=== PATIENT | male | born 1945 | race Two or more races ===

== ENCOUNTER 2023-02-02 12:33 | Outpatient (AMB) | payer MEDICARE, MEDICAID, SELFPAY ==
--- NOTE | 2023-02-02 12:38 | HO.NEPHOV ---
HPI HPI Comments History of Present Illness Details 77y/o male comes fore valuation of cognitive difficulties. He is accompanied by his son and daughter who help with history. The family started noticing problems with his memory about 3- 4 years ago.He was driving and got lost and had to call his son. He frequently misplacing things around the house,losing things in the house like car keys, he has trouble with names , could not recognize his grandson. He has issues with remembering medications. His speech- has trouble with articulating and understanding. He has trouble reading and writing. No h/o major head injury . he played baseball when younger and had concussion once. He has mild depression and not motivated.he has trouble following directions. He stopped driving. According to his daughter he is paranoid thought and mild hallucinations. His gait was slow. His cognition worsened when he was socially isolated during COVID He has loud snoring and has disruptive , has excessive daytime sleepiness. His mother had dementia. [facility] Medical History (Updated 02/02/23 @ 13:25 by Mere Sanchez MD) Gait abnormality Hypersomnia Snoring Expressive aphasia Dementia Arthritis Glaucoma Hypothyroid Surgical History H/O hernia repair Family History Father Cancer AD (Alzheimer's disease) Mother AD (Alzheimer's disease) Vital Signs 02/02/23 12:42 Weight 149 lb 2 oz BP 132/80 Blood Pressure Location Lt brachial Position Sitting Pulse 98 Pulse Source Pulse Oximeter Pulse Oximetry (%) 98 Oxygen Delivery Method Room Air Intake Medication List - Last Reconciled 02/02/23 by Mere Sanchez MD levothyroxine 50 mcg PO DAILY Physical Exam Vital Signs: Last Vital Signs Pulse 98 02/02/23 12:42 BP 132/80 02/02/23 12:42 Pulse Ox 98 02/02/23 12:42 Oxygen Delivery Method Room Air 02/02/23 12:42 Const General: cooperative, healthy appearing, comfortable and confusion Nutritional Appearance: average body habitus Orientation/consciousness: confusion Eyes Pupils: Equal, round and reactive pupils present Neuro Other: slow stooped gait expressive aphasia General: confusion Cranial nerves: Yes Equal, round and reactive pupils present, Yes Bilaterally intact EOM present, Yes Nystagmus not present, Yes Normal facial strength present, Yes Midline tongue present and Yes Symmetric palate elevation present Cognition (Neuro): abnormal cognition Speech: Expressive aphasia present Motor exam (neuro): 5/5 motor strength present throughout and Normal motor muscle tone present throughout Deep tendon reflexes (DTR's): Right triceps reflex intensity grade: 1+, Left triceps reflex intensity grade: 1+, Rt Biceps (C5, C6): 1+, Left biceps reflex intensity grade: 1+, Right brachioradialis reflex intensity grade: 1+, Left brachioradialis reflex intensity grade: 1+, Right patellar reflex intensity grade: 1+ and Left patellar reflex intensity grade: 1+ Coordination: [id number]-[id number]-[id number] test normal Orientation What is the (year) (season) (date) (day) (month)?: season and day Where are we (state) (county) (town or city) (hospital) (floor)?: state Registration Name of 3 unrelated objects clearly and slowly, then ask patient to repeat all 3 of them. (1st repeat determines score. Make sure they can repeat all three): object 1 Language Show patient a wristwatch & ask what it is. 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 Code(s): F03.90 - Unspecified dementia, unspecified severity, without behavioral disturbance, psychotic disturbance, mood disturbance, and anxiety (2) Expressive aphasia: Code(s): R47.01 - Aphasia (3) Snoring: Code(s): R06.83 - Snoring (4) Hypersomnia: Code(s): G47.10 - Hypersomnia, unspecified Plan Lab reports from PCP for review MRI brain I will refer him to Speech and PT sleep study to r/o sleep apnea I will trail him on memantine XR 7 mg qd Orders: Orders MR brain wo con w neuroquant Today F03.90 - Unspecified dementia, unspecified severity, without behavioral disturbance, psychotic disturbance, mood disturbance, and anxiety, R47.01 - Aphasia RT home sleep study Today G47.10 - Hypersomnia, unspecified, R06.83 - Snoring PT Evaluation and Treatment Today R26.9 - Unspecified abnormalities of gait and mobility Referrals Speech and Hearing Referral R47.01 - Aphasia Medications: New memantine 7 mg PO DAILY 14 ea 0RF Coding Level of Care Code New Pt Level 4 (24678) Diagnoses Dementia F03.90 Expressive aphasia R47.01 Snoring R06.83 Hypersomnia G47.10
[2023-02-02 12:42] VITALS: BP 132/80; PULSE 98; O2SAT 98
--- NOTE | 2023-02-07 09:22 | A.OFFVIS_ITS ---
Intake Vital Signs 02/02/23 12:42 Weight 149 lb 2 oz BP 132/80 Blood Pressure Location Lt brachial Position Sitting Pulse 98 Pulse Source Pulse Oximeter Pulse Oximetry (%) 98 Oxygen Delivery Method Room Air Intake Visit Reasons: ENP-Dementia - LVM Allergies No Known Allergies Allergy (Verified 02/02/23 12:38) Medication List - Last Reconciled 02/02/23 by Mere Sanchez MD levothyroxine 50 mcg PO DAILY HPI HPI Comments History of Present Illness Details 77y/o male comes fore valuation of cogni tive difficulties. He is accompanied by his son and daughter who help with history. The family started noticing problems with his memory about 3- 4 years ago.He was driving and got lost and had to call his son. He frequently misplacing things around the house,losing things in the house like car keys, he has trouble with names , could not recognize his grandson. He has issues with remembering medications. His speech- has trouble with articulating and understanding. He has trouble reading and writing. No h/o major head injury . he played baseball when younger and had concussion once. He has mild depression and not motivated.he has trouble following directions. He stopped driving. According to his daughter he is paranoid thought and mild hallucinations. His gait was slow. His cognition worsened when he was socially isolated during COVID He has loud snoring and has disruptive , has excessive daytime sleepiness. His mother had dementia. [facility] Medical History Gait abnormality Hypersomnia Snoring Expressive aphasia Dementia Arthritis Glaucoma Hypothyroid Surgical History H/O hernia repair Family History Father Cancer AD (Alzheimer's disease) Mother AD (Alzheimer's disease) Review of Systems Neuro Reports confusion Psych Reports confusion Physical Exam Vital Signs: Last Vital Signs Pulse 98 02/02/23 12:42 BP 132/80 02/02/23 12:42 Pulse Ox 98 02/02/23 12:42 Oxygen Delivery Method Room Air 02/02/23 12:42 Const Other: MMSE What is the (year) (season) (date) (day) (month)?: season and day Where are we (state) (county) (town or city) (hospital) (floor)?: state Registration Name of 3 unrelated objects clearly and slowly, then ask patient to repeat all 3 of them. (1st repeat determines score. Make sure they can repeat all three): object 1 Language Show patient a wristwatch & ask what it is. Repeat for pencil.: watch Ask the patient to 'take a piece of paper with their right hand' 'fold paper in half' 'place paper on floor': take paper in right hand Score Score: 6 General: cooperative, healthy appearing, comfortable and confusion Nutritional Appearance: average body habitus Orientation/consciousness: confusion Eyes Pupils: Equal, round and reactive pupils present Neuro Other: slow stooped gait expressive aphasia General: confusion Cranial nerves: Yes Equal, round and reactive pupils present, Yes Bilaterally intact EOM present, Yes Nystagmus not present, Yes Normal facial strength p resent, Yes Midline tongue present and Yes Symmetric palate elevation present Cognition (Neuro): abnormal cognition Speech: Expressive aphasia present Motor exam (neuro): 5/5 motor strength present throughout and Normal motor muscle tone present throughout Deep tendon reflexes (DTR's): Right triceps reflex intensity grade: 1+, Left triceps reflex intensity grade: 1+, Rt Biceps (C5, C6): 1+, Left biceps reflex intensity grade: 1+, Right brachioradialis reflex intensity grade: 1+, Left brachioradialis reflex intensity grade: 1+, Right patellar reflex intensity grade: 1+ and Left patellar reflex intensity grade: 1+ Coordination: [id number]-[id number] test normal Assessment & Plan Assessment & Plan (1) Dementia: Comment: 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-moderate to advanced Code(s): F03.90 - Unspecified dementia, unspecified severity, without behavioral disturbance, psychotic disturbance, mood disturbance, and anxiety (2) Expressive aphasia: Code(s): R47.01 - Aphasia (3) Snoring: Code(s): R06.83 - Snoring (4) Hypersomnia: Code(s): G47.10 - Hypersomnia, unspecified Plan Lab reports from PCP for review MRI brain I will refer him to Speech and PT sleep study to r/o sleep apnea I will trail him on memantine XR 7 mg qd Orders: Orders MR brain wo con w neuroquant 11/17/23 F03.90 - Unspecified dementia, unspecified severity, without behavioral disturbance, psychotic disturbance, mood disturbance, and anxiety, R47.01 - Aphasia RT home sleep study 02/02/23 G47.10 - Hypersomnia, unspecified, R06.83 - Snoring PT Evaluation and Treatment 02/02/23 R26.9 - Unspecified abnormalities of gait and mobility Referrals Speech and Hearing Referral R47.01 - Aphasia Medications: New memantine 7 mg PO DAILY 14 ea 0RF Coding Level of Care Code New Pt Level 4 (79153) Diagnoses Dementia F03.90 Expressive aphasia R47.01 Snoring R06.83 Hypersomnia G47.10
== END 2023-02-02 13:26 | disposition home or self-care (01) ==
PROVIDERS: PCP Physician Assistant; Visit Provider Psychiatry & Neurology Neurology
DX: F03.90 Unspecified dementia, unspecified severity, without behavioral disturbance, psychotic disturbance, mood disturbance, and anxiety (principal); R47.01 Aphasia; R06.83 Snoring; G47.10 Hypersomnia, unspecified
CPT/HCPCS: 99204

== ENCOUNTER → 2023-02-02 12:33 | Outpatient (BNVA) | payer MEDICARE, MEDICAID, SELFPAY | PROVIDERS: PCP Physician Assistant; Visit Provider Psychiatry & Neurology Neurology | DX: F03.90 Unspecified dementia, unspecified severity, without behavioral disturbance, psychotic disturbance, mood disturbance, and anxiety (principal); G47.10 Hypersomnia, unspecified; R47.01 Aphasia; R06.83 Snoring | CPT/HCPCS: 99202 ==

== ENCOUNTER 2024-10-15 14:56 | Outpatient (AMB) | payer MEDICARE, MEDICAID, SELFPAY ==
--- NOTE | 2024-10-15 15:11 | A.OFFVIS_ITS ---
Vital Signs 10/15/24 15:21 BP 118/80 Blood Pressure Location Rt brachial Position Sitting Pulse 101 H Pulse Source Pulse Oximeter Pulse Oximetry (%) 98 Oxygen Delivery Method Room Air Intake Visit Reasons: follow up Dementia/MRI Intake Note: Patient presents follow up for dementia/MRI results. Patient no longer responds to commands and can no longer preform tasks on his own. Accompanied by: Son Allergies No Known Allergies Allergy (Verified 02/02/23 12:38) HPI Comments Details: 77y/o male comes for follow up after 2 years for cognitive difficulties. His MRI showed white matter changes. He did not do a sleep study or did not start memantine.He did not do PT or speech therapy.He needs help with all his ADLS. His cognition has worsened.He very quiet now. He barely participates in any regular activities. His describes that he is like a child. He is also anxious around people he does no remember.He does not rememebr his grand son or his sons. history from 2 years ago-He is accompanied by his son and daughter who help with history. The family started noticing problems with his memory about 3- 4 years ago.He was driving and got lost and had to call his son. He frequently misplacing things around the house,losing things in the house like car keys, he has trouble with names , could not recognize his grandson. He has issues with remembering medications. His speech- has trouble with articulating and understanding. He has trouble reading and writing. No h/o major head injury . he played baseball when younger and had concussion once. He has mild depression and not motivated.he has trouble following directions. He stopped driving. According to his daughter he is paranoid thought and mild hallucinations. His gait was slow. His cognition worsened when he was socially isolated during COVID He has loud snoring and has disruptive , has excessive daytime sleepiness. His mother had dementia. [facility] Medical History Gait abnormality Hypersomnia Snoring Expressive aphasia Dementia Arthritis Glaucoma Hypothyroid Surgical History H/O hernia repair Family History Father Cancer AD (Alzheimer's disease) Mother AD (Alzheimer's disease) Review of Systems Neuro Reports confusion Psych Reports confusion Physical Exam Vital Signs: Last Vital Signs Pulse 101 H 10/15/24 15:21 BP 118/80 10/15/24 15:21 Pulse Ox 98 10/15/24 15:21 Oxygen Delivery Method Room Air 10/15/24 15:21 Const General: cooperative, healthy appearing, comfortable and confusion Nutritional Appearance: average body habitus Orientation/consciousness: confusion Neuro Other: slow stooped gait expressive aphasia General: confusion Cognition (Neuro): abnormal cognition Speech: Expressive aphasia present Coordination: [id number] test normal Assessment & Plan Assessment & Plan (1) Dementia: Comment: 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-advanced Code(s): F03.90 - Unspecified dementia, unspecified severity, without behavioral disturbance, psychotic disturbance, mood disturbance, and anxiety Category: Medical (2) Expressive aphasia: Code(s): R47.01 - Aphasia Category: Medical Plan MRI brain- reviewed Info on SS and [facility] Elder care was given to family for supportive care. Coding Level of Care Code Est Pt Level 3 (50810) Diagnoses Dementia F03.90 Expressive aphasia R47.01
[2024-10-15 15:21] VITALS: BP 118/80; PULSE 101; O2SAT 98
--- OUTSIDE RECORDS SUMMARY | 2024-10-15 15:41 | XMS_ITS | Clinical Summary ---
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 01/17/2022 Active levothyroxine (SYNTHROID, LEVOTHROID) 50 mcg tablet Take 1 tablet (50 mcg total) by mouth 1 (one) time each day. 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 Subclinical hypothyroidism 05/22/2016 Memory changes 05/15/2016 Vitamin D deficiency 05/15/2016 Back pain 03/27/2013 Sciatica of right side 03/27/2013 Encounters Date Type Department Care Team Description 08/29/2024 Telephone Adult Medicine [address] [phone] Jessica Blackburn MD Schedule AWV from Last 3 Months Immunizations Name Administration Dates Next Due Influenza trivalent, with pr eservative (Fluzone; Afluria) 6mo and older 03/27/2013 [employer] SARS-CoV-2 COVID -19, vector-nr, rS-Ad26, preservative free 06/30/2020 Pneumococcal conjugate 13 va lent (Prevnar 13, PCV13) 2mo and older 03/27/2013 TD, Adsorbed, Preservative Free 09/20/2010 Td Tetanus diptheria (Tdvax) 7yo and older 09/20 Tdap Tetanus diptheria acell ular pertussis (Boostrix; Adacel) 7yo and older 09/29/2011 Surgical History Surgery Date Site/Laterality Comments OTHER SURGICAL HISTORY PROCEDURE: DENIES PREVIOUS SURGERY HERNIA REPAIR PROCEDURE: LAPAROSCOPY, INGUINAL HERNIA REPAIR Medical History Medical History Date Comments Unspecified hypothyroidism DX:Un specified hypothyroidism Essential and other specifie d forms of tremor DX:Essential and other speci fied forms of tremor Family History Medical History Relation Name Comments Other: No GI disease or GI cancer Other Relation Name Status Comments Brother 1 Alive Healthy Brother 2 Alive healthy Brother 3 Alive Healthy Daughter Alive Healthy Father (Age 92) Prostate C a Maternal Grandfather Maternal Grandmother Mother (Age 82) Alzheimer Other Paternal Grandfather Paternal Grandmother Sister Alive healthy Son 1 Alive High Cholestero l Son 2 Alive Healthy Son 3 Alive healthy Social History Tobacco Use Types Packs/Day Years Used Date Smoking Tobacco: Former Smokeless Tobacco: Former Alcohol Use Standard Drinks/Week Comments No 0 (1 standard drink = 0.6 oz pur e alcohol) Sex and Gender Information Value Date Recorded Sex Assigned at Not on file Legal Sex Male 9:50 AM EST Gender Identity Not on file Sexual Orientation Not on file Obstetrics History Last Filed Vital Signs Vital Sign Reading Time Taken Comments Blood Pressure 117/58 01/17/2022 1:14 PM EDT Pulse 80 01/17/2022 1:14 PM EDT Temperature - - Respiratory Rate - - Oxygen Saturation - - Inhaled Oxygen Concentration - - Weight 65.2 kg (143 lb 12.8 oz) 01/17/2022 1:14 PM EDT Height 172.7 cm (5' 8 ) 01/17/2022 1:14 PM EDT Body Mass Index 21.86 01/17/2022 1:14 PM EDT Plan of Treatment Health Maintenance Due Date Last Done Comments Zoster Vaccines (1 of 2) 1996 Pneumococcal Vaccine: 50+ Years (2 of 2 - PPSV23) 03/27/2014 03/27/2013 RSV Immunization Adult Patients (1 - 1-dose 75+ series) 2021 DTaP,Tdap,and Td Vaccines (3 - Td or Tdap) 09/28/2021 09/29/2011, 09/20/2010, 09/20/2010 Falls Risk Assessment 02/24/2022 Social Influencers of Health Screening 02/24/2022 COVID-19 Vaccine (3 - 2023-2 5 season) 2023 06/30/2020, 06/22/2020 Depression Screening 03/19/2024 Influenza Vaccine (#1) 2024 03/27/2013 Cholesterol Screening (Lipid Panel) 11/03/2025 11/03/2020 Hepatitis C Screening Completed 09/26/2018 HIB Vaccines Aged Out No longer eligi ble based on patient's age to complete this topic HPV Vaccines Aged Out No longer eligi ble based on patient's age to complete this topic Hepatitis A Vaccines Aged Out No long er eligible based on patient's age to complete this topic Hepatitis B Vaccines Aged Out No long er eligible based on patient's age to complete this topic IPV Vaccines Aged Out No longer eligi ble based on patient's age to complete this topic MMR Vaccines Aged Out No longer eligi ble based on patient's age to complete this topic Meningococcal ACWY Vaccine Aged Out N o longer eligible based on patient's age to complete this topic Meningococcal B Vaccine Aged Out No l onger eligible based on patient's age to complete this topic RSV Immunization Patients Under 20 months Aged Out No longer eligible b ased on patient's age to complete this topic Varicella Vaccines Aged Out No longer eligible based on patient's age to complete this topic Procedures Procedure Name Priority Date/Time Associated Diagnosis Comments LIPID PANEL Routine 11/03/2020 HEPATITIS C SCREENING Routine 09/26/2018 from Last 3 Months or Most Recently Relevant to Health Maintenance Results * (ABNORMAL) Lipid panel (11/03/2020) LDL/HDL Ratio 4 0 - 4 Triglycerides 134 0 - 150 mg/dL Cholesterol 236(A) 0 - 200 mg/dL HDL 68 >=40 mg/dL LDL Cholesterol 142(A) 0 - 100 mg/dL Blood Venous blood specimen / Unknown us Historical Provider LAB BLOOD ORDERABLES Gladis l Result * Hepatitis C Screening (09/26/2018) Hepatitis C Screening abstracted us Historical Provider HEALTH MAINTENANCE Final Result from Last 3 Months or Most Recently Relevant to Health Maintenance Care Teams Industrial Maintenance Repairer Relationship Specialty Start Date End Date Jessica Blackburn MD PCP - General Internal Medicine 10/26/21
--- OUTSIDE RECORDS SUMMARY | 2024-10-15 15:41 | XMS_ITS | Clinical Summary ---
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 Name Role Phone Unavailable Primary Care Provider Unavailabl e Allergies No known active allergies Medications No known medications Encounters Date Type Department Care Team Description 08/13/2024 3:00 PM EDT Office Visit [facility] D[facility] [address] [place] [address] Teodoro Koenig Jr., DMD from Last 3 Months Social History Tobacco Use Types Packs/Day Years Used Date Smoking Tobacco: Never Assessed Comments Unknown Sex and Gender Information Value Date Recorded Sex Assigned at Choose not to disclose 03/2023 10:51 AM EDT Legal Sex Male 8:36 PM EDT Gender Identity Choose not to disclose 10:51 AM EDT Sexual Orientation Choose not to disclose 2023 10:51 AM EDT Last Filed Vital Signs Vital Sign Reading Time Taken Comments Blood Pressure 100/65 09/17/2023 2:26 PM EDT Pulse 86 09/17/2023 2:26 PM EDT Temperature - - Respiratory Rate - - Oxygen Saturation - - Inhaled Oxygen Concentration - - Weight - - Height - - Body Mass Index - - Plan of Treatment Health Maintenance Due Date Last Done Comments Dental Oral Exam 1946 Dental Prophylaxis 1946 Dental X-Ray: Bitewings 1946 Dental X-Ray: Full Mouth 1946 Depression Screening 1946 Lipid Panel 1946 SDOH Screening 1946 Alcohol/Substance Use Screening 1958 Tobacco Screening 1958 Hepatitis C Screening 1964 Zoster Vaccines (1 of 2) 1996 Pneumococcal Vaccine: 50+ Years (2 of 2 - PPSV23) 03/27/2014 03/27/2013 RSV Patients and Patients Aged 60 years or older (1 - 1-dose 75+ series) 2021 DTaP/Tdap/Td Vaccines (2 - T d or Tdap) 09/28/2021 09/29/2011, 09/20/2010, 09/20/2010 COVID-19 Vaccine (2 - 2023-2 5 season) 2023 06/22/2020 Influenza Vaccine (#1) 2024 03/27/2013 HIB Vaccines Aged Out No longer eligi [...] patient's age to complete this topic Meningococcal Vaccine Aged Out No mariangel juan eligible based on patient's age to complete this topic RSV under 20 months Aged Out No longe r eligible based on patient's age to complete this topic Rotavirus Vaccines Aged Out No longer eligible based on patient's age to complete this topic Procedures Procedure Name Priority Date/Time Associated Diagnosis Comments CASE PRESENTATION, DETAILED AND EXTENSIVE TREATMENT PLANNING Routine 08/13/2024 3:00 PM EDT 1 EXTRACTION, ERUPTED TOOTH OR EXPOSED ROOT (ELEVATION/FORCEPS REMOVAL) Routine 08/13/2024 3:00 PM EDT from Last 3 Months Insurance DENTAL - [facility] FULL (MEDICAID) [address] [place] [address]
== END 2024-10-15 15:40 | disposition home or self-care (01) ==
LOC: HO.HSMS 14:56
PROVIDERS: PCP Family Medicine; Visit Provider Psychiatry & Neurology Neurology
DX: F03.90 Unspecified dementia, unspecified severity, without behavioral disturbance, psychotic disturbance, mood disturbance, and anxiety (principal); R47.01 Aphasia
CPT/HCPCS: 99213

== ENCOUNTER → 2024-10-15 14:56 | Outpatient (BNVA) | payer MEDICARE, MEDICAID, SELFPAY | PROVIDERS: PCP Family Medicine; Visit Provider Psychiatry & Neurology Neurology | DX: R47.01 Aphasia (principal); F03.90 Unspecified dementia, unspecified severity, without behavioral disturbance, psychotic disturbance, mood disturbance, and anxiety | CPT/HCPCS: 99212 ==